=== PATIENT | male | born 1960 | race Caucasian/White ===

== ENCOUNTER 2021-09-08 07:58 | Outpatient (RCR) | payer SELFPAY | END 2022-08-25 08:39 | disposition home or self-care (01) | PROVIDERS: PCP Family Medicine | DX: M48.062 Spinal stenosis, lumbar region with neurogenic claudication (principal); M47.26 Other spondylosis with radiculopathy, lumbar region; M62.830 Muscle spasm of back; M79.605 Pain in left leg; Z51.89 Encounter for other specified aftercare ==

== ENCOUNTER 2021-10-02 15:10 | Outpatient (CLI) | payer SELFPAY ==
[2021-10-02 17:20] LABS: Chloride* 104 mmol/L (96-114); Potassium* 4.5 mmol/L (3.6-5.1); Sodium* 138 mmol/L (135-149)
[2021-10-02 17:22] LABS: Creatinine* 0.8 mg/dL (0.5-1.5); Estimated Glomerular Filt Rate 101 ml/min
[2021-10-02 17:23] LABS: Blood Urea Nitrogen* 22 mg/dL (7-30); Calcium* 9.3 mg/dL (8.4-10.6); Carbon Dioxide* 27 mmol/L (20-32); Glucose* 86 mg/dL (60-115)
== END 2021-10-02 15:11 | disposition home or self-care (01) ==
LOC: LONREF 15:12
PROVIDERS: PCP Family Medicine; Visit Provider Family Medicine
DX: Z01.818 Encounter for other preprocedural examination (principal)
CPT/HCPCS: 80048

== ENCOUNTER 2021-10-05 09:15 | Outpatient (CLI) | payer SELFPAY | END 2021-10-05 09:16 | disposition home or self-care (01) | LOC: LAB 09:15 | PROVIDERS: PCP Family Medicine; Visit Provider Orthopaedic Surgery Sports Medicine | DX: Z01.818 Encounter for other preprocedural examination (principal) | CPT/HCPCS: 36415; 86850; 86900; 86901 ==

== ENCOUNTER 2021-10-06 08:03 | Outpatient (CLI) | payer SELFPAY ==
[2021-10-06 16:09] LABS: SARS PCR* Negative SARS-CoV-2 (Negative)
== END 2021-10-06 08:04 | disposition home or self-care (01) ==
LOC: LONREF 08:25
PROVIDERS: PCP Family Medicine; Visit Provider Orthopaedic Surgery Sports Medicine
DX: Z20.822 Contact with and (suspected) exposure to COVID-19 (principal)
CPT/HCPCS: 87635

== ENCOUNTER 2021-10-07 08:52 | Day surgery (SDC) | payer SELFPAY ==
[2021-10-07] VITALS (31 sets, daily range): BP systolic 77–157; BP diastolic 51–96; PULSE 54–84; RESP 10–18; TEMP 35.9–36.9; O2SAT 92–100; BMI 26.9
[2021-10-07] MEDS: CELECOXIB 200 MG CAPSULE PO ×2 (08:57→20:45)
[2021-10-07] MEDS: LACTATED RINGERS 1000 ML 1,000 ML 100 ML IV ×2 (09:50→12:19)
[2021-10-07] MEDS: SODIUM CHLORIDE 0.9 % (FLUSH) 10 ML SYRINGE IVF (09:50)
--- NOTE | 2021-10-07 10:04 | CRLHL7_ITS ---
For Patients: As a result of the Cures Act, medical imaging exams and procedure reports are released immediately into your electronic medical record. You may view this report before your referring provider. If you have questions, please contact your health care provider. Indication: post op left AP hip Technique: AP hip centered pelvis and lateral view left hip Findings/Impression: Hardware from a left total hip arthroplasty is in satisfactory position. Bone alignment is normal. No sign of acute fracture. Postop changes are within normal limits. Dictated by Mg Parrish MD @ 10/08/2021 9:32:10 AM (Electronically Signed)
--- NOTE | 2021-10-07 10:19 | CRLHL7_ITS ---
For Patients: As a result of the Cures Act, medical imaging exams and procedure reports are released immediately into your electronic medical record. You may view this report before your referring provider. If you have questions, please contact your health care provider. Indication: Hip replacement surgery Technique: AP hip fluoroscopic image. Fluoroscopy time 45.0 seconds. Findings/Impression: Hardware from a left total hip arthroplasty is in satisfactory position. Dictated by Mg Parrish MD @ 10/07/2021 1:38:01 PM (Electronically Signed)
[2021-10-07] MEDS: fentaNYL 100 MCG/2 ML inj IVP (10:59)
[2021-10-07] MEDS: MIDAZOLAM HCL 1 MG/ML inj IVP (10:59)
--- NOTE | 2021-10-07 11:12 | SUR.PREOP ---
TIME?OUT:?1058 PT/RN/MDA?VERIFICATION?OF?SURGICAL?SITE,?PROCEDURE,?AND?CONSENT OBTAINED?PRIOR?TO?INVASIVE?PROCEDURE.
--- NOTE | 2021-10-07 11:15 | SUR.PREOP ---
TIME?OUT:?1058 PT/RN/MDA?VERIFICATION?OF?SURGICAL?SITE,?PROCEDURE,?AND?CONSENT OBTAINED?PRIOR?TO?INVASIVE?PROCEDURE.
--- NOTE | 2021-10-07 11:23 | P.NB_ITS ---
Nerve Block Nerve Block Time Seen by Provider: 11:00 Date Seen: 10/07/21 Type of block requested by surgeon for post-operative analgesia: MP/LFCN Side: left Time out performed: Yes Verification of patient name: Yes Verification of date of : Yes Site marking: site marked Name of person performing procedure: Tawanda Continuous monitoring Was continuous monitoring of O2 sat, B/P, technical account executive, recorded every 15 minutes?: Yes Procedure Checklist: sterile prep, needles and gloves Ultrasound guided. Images saved: Yes Medications given in 5ml increments after negative aspiration: Ropivicaine %: 0.5 mL: 20 Needle gauge: 20 Decadron (mg): 10 Precedex (mcg): 25 Patient tolerated procedure well: Yes Additional comments: Needle noted adjacent to nerve Block Charges Block Charge (with Pro Fee): Other Periph Nerve Block Use of Ultrasound Machine for Block: Yes- US Guidance/pain block
[2021-10-07] MEDS: CEFAZOLIN 2 GM INJ IVP (11:27)
--- NOTE | 2021-10-07 13:12 | P.ORPRC_ITS ---
Procedure Note Date of procedure: 10/07/21 Procedure: PREOPERATIVE DIAGNOSIS: 1. Left hip osteoarthritis, severe, primary POSTOPERATIVE DIAGNOSIS: 1. Left hip osteoarthritis, severe, primary PROCEDURE: 1. Left total hip arthroplasty-anterior approach 2. 34651 - intraoperative fluoroscopy up to 1 hour. SURGEON: Rafael Christie MD. TURKEY ROLL MAKER: Denis Bai PA-C; Wilfredo GARRISON - Of note, a skilled printing bindery assistant was critical for this case to aid in patient positioning, tissue retraction, limb manipulation/positioning, dislocation/relocation, patient safety, and closure. ANESTHESIA: Spinal anesthetic EBL: 800 mL IMPLANTS: DePuy J&J uncemented total hip Butler cup size 52, hole eliminator, +0 neutral liner Actis stem, high offset, size 8 +1 mm ceramic 32mm head. COMPLICATIONS: None evident INDICATIONS: The patient is a pleasant 61-year-old male who has experienced severe left hip pain and difficulty bearing weight. Workup included x-rays which revealed severe osteoarthrosis in the hip. Given the deformity, the dysfunction, and the pain, as well as the failure of nonoperative management, recommendation was made for surgery. FINDINGS: Moderate effusion upon entering the joint. Full-thickness cartilage loss superior acetabulum and significant wear superior femoral head. Osteophytes around the femoral head/neck junction and perimeter of acetabulum. DESCRIPTION OF PROCEDURE: Following a thorough discussion of risks, benefits, and alternatives consent was obtained and the left hip was marked. The patient was brought to the operating room and placed supine on the operating table. Induction of anesthesia was undertaken. 2 g IV Ancef and 1 g tranexamic acid was administered within 1 hr of incision preoperatively. Proper time-out was performed identifying proper patient, site, procedure. The operative extremity was prepped and draped in the appropriate sterile fashion using ChloraPrep after the patient was positioned on the Todd table with head in neutral alignment and all bony prominences well padded. C-arm fluoroscopic imaging was utilized to confirm proper pelvis rotation and position, and to get true AP films of both the contralateral left, and the affected left hip. This is for comparison. A longitudinal incision was made starting approximately 1 cm distal to the ASIS, and 3-4 cm lateral. The incision was extended distally aiming toward the lateral border the patella. Sharp incision through skin and bovie cautery through the subcutaneous tissue allowed identification of the TFL fascia. This was sharply divided, and the fascia bluntly released from the muscle fibers as we dissected medial. Upon coming to the medial border, we were able to retract the TFL laterally, and penetrated the deeper fascia and identify the crossing circumflex vessels. These were ligated/cauterized. The rectus was elevated from the capsule, and retractors placed laterally and medially along the femoral neck to help with visualization of the capsule. We then performed an inverted T capsulotomy. The capsule was tagged for later repair. Retractors were placed inside the capsule. The femoral neck was visualized after releasing medially down to the lesser trochanter, along the saddle laterally, and up onto the acetabulum. The femoral neck cut was made in line with our preoperative templating. The head was removed in a single piece, and sized. We turned our attention to acetabular preparation. Initially, the labrum was resected from around the perimeter, the pulvinar was excised, allowing us to visualize the false wall. We started the reaming with a 43 mm reamer. This was medialized down to the true wall. We then enlarged our reamers sequentially up to one size less than the selected cup size. We trialed at the same size and found it to have an excellent fit. The selected cup was then opened, inserted, and impacted in line with the goal of 40-45? of abduction, and 20-25? of anteversion. This was confirmed on C-arm fluoroscopic imaging to be in the appropriate/goal position. Once the cup was placed we placed a hole eliminator and a liner consistent with preop planning. Attention was turned to the femoral preparation. The limb was extended, externally rotated, and adducted. The posteromedial capsule was released, as retractors were placed allowing excellent access to the proximal femur. Initially a switch box installer was followed by canal finder followed by various broaches. We broached sequentially up to size noted above, found it to have excellent rotational control, and trialing various heads and necks, revealed that appropriate neck offset, and the above noted head size provided the greatest stability, and bahai of length, and offset. C-arm fluoroscopic imaging confirmed position of the stem, as well as leg lengths, which were compared with the pre procedure all fluoroscopic images. Trial implants were removed, the real femoral stem inserted, as was the ceramic head. After reducing, the leg was placed through range of motion and stability was confirmed anterior, posterior, and lateral. A 3 min Betadine soak was then performed, and thorough irrigation with normal saline followed. Closure of the capsule was performed with #1 PDS. Bleeding was confirmed to be controlled at this stage, and the TFL fascia was closed with #0 strata fix. Subcutaneous, and subcuticular closure was performed with 2-0 Vicryl and 4-0 Monocryl, respectively. Dressings were applied, and the patient was awoken from anesthesia and transferred the PACU in stable condition. A skilled printing bindery assistant was critical for this case to aid in patient positioning, tissue retraction, proximal femur exposure, limb manipulation/positioning, dislocation/relocation, patient safety, and closure. PLAN: 1. Weight bear as tolerated operative extremity. 2. 23 hr perioperative antibiotics. 3. Ice. 4. PT/OT consults for ambulation assistance/mobility education. 5. Social work consult for discharge planning. 6. DVT prophylaxis with at SCDs, Benedicto Nye, and Xarelto x5 days followed by a spirin for a total of 1 month..
--- NOTE | 2021-10-07 13:51 | W.ANESCHARGE ---
Anesthesia Charges Start Date/Time Anesthesia Start Date: 10/07/21 Anesthesia Start Time: 11:14 Stop Date/Time Anesthesia Stop Date: 10/07/21 Anesthesia Stop Time: 13:47 Summary Emergency: No
[2021-10-07] MEDS: fentaNYL 100 MCG/2 ML inj 50 MCG IVP (14:15)
--- NOTE | 2021-10-07 15:33 | PC.NURSE ---
End of Shift: Patient arrived to the floor awake and alert in bed at 1447, patient very pleasant and cooperative. Patient vitally stable, upon arrival, lung clear, BS WNL, LR running 75ml. Patient can move right toes but not yet left foot toes. Patient denies pain. Patient tolerating ice, chips, water, apple sauce, and pudding. Left hip dressing C/D/I.
--- NOTE | 2021-10-07 15:34 | PM.IMCN1 ---
Date of Consult Consult date: 10/07/21 Requesting Physician: Orthopedics Primary Care Provider: Tanvir Monroe MD Consult Narrative Reason for consult: Medical management of comorbidities Narrative: Jabari Coates is a 61 year old male presented to the hospital today for elective left hip replacement with Dr. Harper. There were no operative or anesthetic complications. Patient is feeling well when I see him postoperatively. His blood pressure is on the low side, this is baseline for him and he is asymptomatic. Hospitalist team was consulted given patient's comorbidities which include anxiety, insomnia, and family history of cardiac disease. Preoperative H&P and labs reviewed (Dr. Monroe is PCP locally); no concerns noted. Patient is generally healthy, takes Sertraline daily for anxiety and melatonin prn at HS. Nonsmoker, no alcohol use. Lives with his in [place], works at [employer] in [place]. Two adult sons live in [place], [place]. Review of Systems Status of ROS: Reports: 10 or more systems reviewed and unremarkable except as noted in History and below [facility] Medical History (Updated 10/05/21 @ 13:06 by Sukumar Butterfield RN) Anxiety Neuropathy of left lower extremity Osteoarthritis of left hip Surgical History (Updated 10/07/21 @ 15:45 by Rossi Christian MD) H/O umbilical hernia repair H/O vasectomy (~1999) History of ankle surgery S/P hernia surgery (~2001) Family History Mother Breast cancer Brother Heart problem Heart attack Social History Smoking Status: Former smoker Do you use any of these nicotine containing products: None Second hand tobacco smoke exposure: No How often do you have a drink containing alcohol: never AUDIT-C Alcohol total score: 0 Non-prescribed substance use: denies use Caffeine: Yes (coffee, 5-6 cups/day) Meds Home Medications and Allergies Home Medications Medication Instructions Recorded Confirmed Type melatonin 5 mg capsule 10 mg PO .Bedtime as needed PRN 09/17/21 10/07/21 History sertraline 50 mg tablet 50 mg PO DAILY 09/17/21 10/07/21 History Allergies Allergy/AdvReac Type Severity Reaction Status Date / Time acetaminophen [From Percocet] Allergy Intermediate Rash Verified 10/07/21 09:16 oxycodone [From Percocet] Allergy Intermediate Rash Verified 10/07/21 09:16 Exam Narrative: Exam Narrative: GEN: Alert and oriented, sitting comfortably in bed and answering questions appropriately HEENT: Normal external ears, EOMIs bilaterally, no scleral icterus CV: RRR, No concerning murmurs, rubs, or gallops R: LCTA bilaterally without concerning wheezing, rales, or rhonchi Ext: wwp, no concerning edema, wearing Benedicto hose Neuro: Nonfocal, no resting tremor, gait not observed Psych: Appropriate Const: Vital Signs, click to edit/add: Vital Signs - 24 hr 10/07/21 09:22 10/07/21 11:00 10/07/21 11:05 Temperature 97.1 F L Pulse Rate 61 71 71 Pulse Rate [Left P ulse Oximeter] Respiratory Rate 16 16 16 Blood Pressure 153/89 H 157/96 H 142/89 H Blood Pressure [Ri ght Arm] Pulse Oximetry 100 98 93 Oxygen Delivery Me thod Room Air Nasal Cannula Nasal Cannula Oxygen Flow Rate 2 2 10/07/21 11:11 10/07/21 13:46 10/07/21 13:50 Temperature 97.2 F L Pulse Rate 76 68 69 Pulse Rate [Left P ulse Oximeter] Respiratory Rate 16 16 12 Blood Pressure 135/87 102/62 107/68 Blood Pressure [Ri ght Arm] Pulse Oximetry 98 98 99 Oxygen Delivery Me thod Nasal Cannula Room Air Room Air Oxygen Flow Rate 2 10/07/21 13:55 10/07/21 14:00 10/07/21 14:05 Temperature Pulse Rate 65 71 69 Pulse Rate [Left P ulse Oximeter] Respiratory Rate 10 L 14 12 Blood Pressure 107/73 109/74 102/81 Blood Pressure [Ri ght Arm] Pulse Oximetry 95 96 98 Oxygen Delivery Me thod Room Air Room Air Room Air Oxygen Flow Rate 10/07/21 14:10 10/07/21 14:15 10/07/21 14:20 Temperature 97.1 F L Pulse Rate 63 57 L 57 L Pulse Rate [Left P ulse Oximeter] Respiratory Rate 12 15 16 Blood Pressure 112/76 121/70 115/70 Blood Pressure [Ri ght Arm] Pulse Oximetry 95 96 100 Oxygen Delivery Me thod Room Air Room Air Room Air Oxygen Flow Rate 10/07/21 14:25 10/07/21 14:47 10/07/21 15:00 Temperature 96.8 F L 96.6 F L Pulse Rate 58 L 61 Pulse Rate [Left P ulse Oximeter] 56 L Respiratory Rate 12 12 12 Blood Pressure 116/69 Blood Pressure [Ri ght Arm] 120/83 123/82 Pulse Oximetry 100 99 Oxygen Delivery Me thod Room Air Room Air Room Air Oxygen Flow Rate 0 10/07/21 14:30 10/07/21 14:35 Temperature Pulse Rate 54 L 58 L Pulse Rate [Left P ulse Oximeter] Respiratory Rate 14 16 Blood Pressure 115/72 77/51 L Blood Pressure [Ri ght Arm] Pulse Oximetry 92 98 Oxygen Delivery Me thod Room Air Room Air Oxygen Flow Rate Assessment and Plan Assessment and plan (1) Hip joint replacement status: Status: Acute Plan 61-year-old male with left hip replacement: Pain Management and prophylaxis per orthopedic surgery team. Continue home medications. Continue to follow blood pressure. Anticipate routine postoperative cares and discharge home tomorrow.
[2021-10-07] MEDS: LACTATED RINGERS 1000 ML 1,000 ML 75 ML IV (16:59)
[2021-10-07] MEDS: HYDROmorphone 2 MG TABLET PO ×2 (17:00→22:45)
[2021-10-07] MEDS: CEFAZOLIN 2 GM in 0.9 % SODIUM CHLORIDE Mini-bag 100 ML IVPB (17:30)
[2021-10-07] MEDS: ACETAMINOPHEN 500 MG TABLET 1000 MG PO ×2 (17:30→23:56)
[2021-10-07] MEDS: hydrOXYzine pamoate 25 MG CAPSULE PO ×2 (17:33→22:45)
[2021-10-07] MEDS: 0.9 % SODIUM CHLORIDE 500 ML IV (19:50)
[2021-10-07] MEDS: SENNOSIDES 1 TAB TABLET 2 TAB PO (20:45)
--- NOTE | 2021-10-07 23:51 | PC.NURSE ---
End of Shift: Patient pleasant and cooperative. Afebrile. Rating pain in left hip up to 5/10. PRN Dilaudid and Vistaril given x2. Dressing to left hip C/D/I. CMS intact. Tolerating regular diet with no nausea. Patient became lightheaded, dizzy and diaphoretic on first attempt to get out of bed when sitting on the side of the bed. Patient laid back down and BP 82/53, heart rate 64. Updated MD and 500 cc bolus given. Next BP 92/54 and 100/66. Patient able to ambulate to bathroom after a few hours with 2 assist, walker and gait belt and denied any further lightheadedness or dizziness. Patient unable to void after being up to the bathroom and several attempts with the urinal in bed. Bladder scanned for 630 mL and straight cath x1.
[2021-10-08] MEDS: CEFAZOLIN 2 GM in 0.9 % SODIUM CHLORIDE Mini-bag 100 ML IVPB ×2 (01:19→10:11)
[2021-10-08 03:00] VITALS: BP 101/58; PULSE 65; RESP 18; TEMP 36.6; O2SAT 97
[2021-10-08] MEDS: hydrOXYzine pamoate 25 MG CAPSULE PO (05:14)
[2021-10-08] MEDS: HYDROmorphone 2 MG TABLET PO ×3 (05:14→12:15)
[2021-10-08] MEDS: LACTATED RINGERS 1000 ML 1,000 ML 75 ML IV (05:20)
--- NOTE | 2021-10-08 05:42 | PC.NURSE ---
[id number]: patient assist X1 with walker and gait belt, pain minimal see EMAR for meds given. ice to surgical site. incison c/d/i. tolerating diet.
--- NOTE | 2021-10-08 06:48 | W.ANESCHARGE ---
Anesthesia Charges Start Date/Time Anesthesia Start Date: 10/07/21 Anesthesia Start Time: 11:14 Stop Date/Time Anesthesia Stop Date: 10/07/21 Anesthesia Stop Time: 13:47 Summary Emergency: No
[2021-10-08 07:00] VITALS: BP 111/68; PULSE 75; RESP 18; TEMP 37.1; O2SAT 100
[2021-10-08 07:06] LABS: Basophils Percent Auto 0.1 % (0.0-3.0); Hematocrit 31.9 % (37.0-53.0); Hemoglobin* 10.7 gm/dL (13.5-17.5); Immature Granulocytes Abs Auto 0.02 K/uL (0.00-0.30); Mean Corpuscular HGB Conc 34 gm/dL (32-36); Mean Corpuscular Hemoglobin 31 pg (26-34); Mean Corpuscular Volume 92 fL (80-100); Monocytes Percent Auto 8.1 % (0.0-11.0); Neutrophils Percent Auto 81.6 % (42.0-72.0); Platelet Count* 195 K/uL (140-440); RDW Coefficient of Variation % 12.8 % (11.5-15.5); Red Blood Count 3.47 m/uL (4.30-5.90)
[2021-10-08 07:22] LABS: Slide Review Reflex No
[2021-10-08 07:33] LABS: Potassium* 4.4 mmol/L (3.6-5.1); Sodium* 136 mmol/L (135-149)
[2021-10-08 07:36] LABS: Blood Urea Nitrogen* 20 mg/dL (7-30); Creatinine* 0.6 mg/dL (0.5-1.5); Est. Creatinine Clearance* 79.08; Estimated Glomerular Filt Rate 109 ml/min
[2021-10-08] MEDS: RIVAROXABAN 10 MG TABLET PO (08:59)
[2021-10-08] MEDS: SENNOSIDES 1 TAB TABLET 2 TAB PO (08:59)
[2021-10-08] MEDS: SERTRALINE 50 MG TABLET PO (08:59)
[2021-10-08] MEDS: CELECOXIB 200 MG CAPSULE PO (09:03)
[2021-10-08] MEDS: ACETAMINOPHEN 500 MG TABLET 1000 MG PO (12:14)
--- NOTE | 2021-10-08 13:06 | PC.NURSE ---
shift note: drsg to lt hip c/d/i. pt has intact cms and cap refill. Pt instructed on dc orders and questions addressed. pt sent with 2 ice paks, 1 set of extra abi socks. Pt bp stable and wnl. IV dc'd intact. Pt sent with IS. Pt instructed on s/s of dvt. Belongings reviewed with pt and sent at dc to home.
--- NOTE | 2021-10-08 13:27 | P.DS_ITS ---
DS: Providers Provider Time Seen by Provider: 10:00 Date Seen: 10/09/21 Date of admission: 10/08/2021 Primary care physician: Tanvir Monroe MD Admitting Clinician: Rafael Christie MD Consults: 10/07/21 14:22 Consult to Occupational Therapy [CONS] Routine Comment: Reason(s) for OT Consult:: ADLs Prior to Discharge Any Restrictions?:: No Restrictions Comment: Consult to Physical Therapy [CONS] Routine Comment: Ambulate in the silveira today Reason(s) for PT Consult:: Evaluate and Treat Any Restrictions?:: No Restrictions Comment: Nursing Activity Consult to Physician [CONS] Routine Comment: Consulting Provider: Hospitalists Has provider been notified: No Consult to Bee Producer [CONS] Routine Comment: Reason for Consult:: Discharge Planning Needs Attending Physician on discharge: Rafael Christie MD Date of Discharge: 10/08/21 DS: Diagnosis Discharge Diagnosis (1) Hip joint replacement status: Status: Acute (2) Postoperative anemia due to acute blood loss: Status: Acute (3) Neuropathy of left lower extremity: Status: Acute (4) Osteoarthritis of left hip: Status: Acute (5) Lumbar spine pain: Status: Acute Problem details: 2. Moderate degenerative central stenosis at L2-3 and mild central stenosis at other levels 2b. Multilevel hypertrophic facet degeneration and multilevel degenerative foraminal stenosis, especially bilaterally at L5-S1 and right L3-4 2c. Modic 1 endplate marrow changes posteriorly at L1-2 (6) Anxiety: Status: Acute DS: Summary Hospital Course Hospital Course: Jabari Coates is a 61 year old male presented to the hospital today for elective left hip replacement with Dr. Harper. There were no operative or anesthetic complications.? Patient is feeling well when I see him postoperatively. His blood pressure is on the low side, this is baseline for him and he is asymptomatic. Hospitalist team was consulted given patient's comorbidities which include anxiety, insomnia, and family history of cardiac disease. Preoperative H&P and labs reviewed (Dr. Monroe is PCP locally); no concerns noted. Patient is generally healthy, takes Sertraline daily for anxiety and melatonin prn at HS. Nonsmoker, no alcohol use.? Lives with his in [place], works at [employer] in [place]. Patient did well postoperatively. Did well physical and occupational therapy. We did find mild postoperative anemia. Status at Discharge Functional status at discharge: uses cane/walker Overall status at discharge: patient is progressing back to baseline Time Spent with Patient Time attestation: Total time spent providing and/or coordinating discharge services: Time spent: Less than 30 minutes Exam Narrative: Exam Narrative: Alert, oriented to self, place, time, situation. Friendly. Cooperative. Mood and affect are congruent. Lungs are clear to auscultation. He has a regular heart rhythm, normal S1-S2 without murmur gallop or rub. Abdomen is benign. Extremities all edema. Ambulates independently with walker. Const: Vital Signs, click to edit/add: Vital Signs - 24 hr 10/07/21 13:46 10/07/21 13:50 10/07/21 13:55 Temperature 97.2 F L Pulse Rate 68 69 65 Pulse Rate [Left P ulse Oximeter] Respiratory Rate 16 12 10 L Blood Pressure 102/62 107/68 107/73 Blood Pressure [Ri ght Arm] Pulse Oximetry 98 99 95 [facility] Room Air Oxygen Flow Rate 10/07/21 14:00 10/07/21 14:05 10/07/21 14:10 Temperature Pulse Rate 71 69 63 Pulse Rate [Left P ulse Oximeter] Respiratory Rate 14 12 12 Blood Pressure 109/74 102/81 112/76 Blood Pressure [Ri ght Arm] Pulse Oximetry 96 98 95 [facility] Room Air Room Air Oxygen Flow Rate 10/07/21 14:15 10/07/21 14:20 10/07/21 14:25 Temperature 97.1 F L Pulse Rate 57 L 57 L 58 L Pulse Rate [Left P ulse Oximeter] Respiratory Rate 15 16 12 Blood Pressure 121/70 115/70 116/69 Blood Pressure [Ri ght Arm] Pulse Oximetry 96 100 100 Oxygen Delivery [place] thod Room Air Room Air Room Air Oxygen Flow Rate 10/07/21 14:47 10/07/21 15:00 10/07/21 14:30 Temperature 96.8 F L 96.6 F L Pulse Rate 61 54 L Pulse Rate [Left P ulse Oximeter] 56 L Respiratory Rate 12 12 14 Blood Pressure 115/72 Blood Pressure [Ri ght Arm] 120/83 123/82 Pulse Oximetry 99 92 Oxygen Delivery La thod Room Air Room Air Room Air Oxygen Flow Rate 0 10/07/21 14:35 10/07/21 15:15 10/07/21 15:30 Temperature 96.7 F L 97.3 F L Pulse Rate 58 L Pulse Rate [Left P ulse Oximeter] 61 61 Respiratory Rate 16 16 16 Blood Pressure 77/51 L Blood Pressure [Ri ght Arm] 107/75 100/59 L Pulse Oximetry 98 98 98 Oxygen Delivery Me thod Room Air Room Air Room Air Oxygen Flow Rate 0 10/07/21 15:45 10/07/21 16:00 10/07/21 16:30 Temperature Pulse Rate Pulse Rate [Left P ulse Oximeter] 63 65 79 Respiratory Rate 16 16 16 Blood Pressure Blood Pressure [Ri ght Arm] 117/81 118/80 125/87 Pulse Oximetry 99 98 100 Oxygen Delivery Me thod Room Air Room Air Room Air Oxygen Flow Rate 0 10/07/21 17:00 10/07/21 18:00 10/07/21 19:00 Temperature 97.6 F Pulse Rate Pulse Rate [Left P ulse Oximeter] 77 84 83 Respiratory Rate 16 16 18 Blood Pressure Blood Pressure [Ri ght Arm] 118/81 115/81 116/79 Pulse Oximetry 99 97 96 Oxygen Delivery Me thod Room Air Room Air Room Air Oxygen Flow Rate 10/07/21 19:35 10/07/21 19:40 10/07/21 19:45 Temperature 97.6 F Pulse Rate Pulse Rate [Left P ulse Oximeter] 64 65 61 Respiratory Rate 16 16 16 Blood Pressure Blood Pressure [Ri ght Arm] 82/53 L 92/54 L 100/66 Pulse Oximetry 99 97 98 Oxygen Delivery Me thod Room Air Room Air Room Air Oxygen Flow Rate 10/07/21 20:00 10/07/21 21:00 10/07/21 23:57 Temperature 98.4 F 97.6 F Pulse Rate Pulse Rate [Left P ulse Oximeter] 66 76 67 Respiratory Rate 16 16 18 Blood Pressure Blood Pressure [Ri ght Arm] 104/76 125/84 113/61 Pulse Oximetry 95 98 96 Oxygen Delivery Me thod Room Air Room Air Room Air Oxygen Flow Rate 10/08/21 03:00 10/08/21 07:00 Temperature 98 F 98.7 F Pulse Rate Pulse Rate [Left P ulse Oximeter] 65 75 Respiratory Rate 18 18 Blood Pressure Blood Pressure [Ri ght Arm] 101/58 L 111/68 Pulse Oximetry 97 100 Oxygen Delivery Me thod Room Air Room Air Oxygen Flow Rate 0 DS: Data Data Completed and Pending Labs on day of discharge: Labs from last 24 hours 10/08/21 10/08/21 06:27 06:27 WBC 11.70 H RBC 3.47 L Hgb 10.7 L Hct 31.9 L MCV 92 MCH 31 MCHC 34 RDW Coeff of Cecily 12.8 Plt Count 195 Neut % (Auto) 81.6 H Lymph % (Auto) 10.0 L [place] % (Auto) 8.1 Eos % (Auto) 0.0 Baso % (Auto) 0.1 Neut # (Auto) 9.50 H Lymph # (Auto) 1.20 [place] # (Auto) 0.90 Eos # (Auto) 0.00 Baso # (Auto) 0.00 Abs Immat Gran (auto) 0.02 Sodium 136 Potassium 4.4 BUN 20 Creatinine 0.6 Estimated Creat Clear 79.08 Estimated GFR 109 Discharge Plan Discharge Disposition: Home, Self-Care Discharging Surgeon: Rafael Christie Follow-Up Appointment: Orthopedic surgery as planned Prescriptions: New sennosides-docusate sodium [Senna-S] 8.6-50 mg tablet 1 - 4 tab-cap PO BID PRN (Reason: constipation) Qty: 60 0RF Rx Instructions: Hold medication if experiencing loose stools. rivaroxaban 10 mg tablet 10 mg PO DAILY Qty: 4 0RF Rx Instructions: Medication for deep vein clot prevention post surgery. Complete this medication before starting Aspirin. aspirin 81 mg tablet,delayed release (DR/EC) 81 mg PO BID Qty: 50 0RF Rx Instructions: Medication to help prevent blood clots postoperatively; take TWICE daily. Start after completing rivaroxaban. hydromorphone 2 mg tablet 2 - 4 mg PO Q4-6H Qty: 30 0RF Rx Instructions: PRN postop pain: 2mg mild-moderate pain, 4mg severe pain. Wean as tolerated. acetaminophen 500 mg capsule 500 - 1,000 mg PO Q6H MDD 4000mg PRNQty: 100 0RF Continued melatonin 5 mg capsule 10 mg PO .Bedtime as needed PRN sertraline 50 mg tablet 50 mg PO DAILY Activity Level: Activity as Tolerated, Weight Bearing as Tolerated, Use Cane and Use Walker Activity Detail: Wound: ?Do not remove original dressing; we will remove this at first postop visit in 1 week. Only remove dressing if integrity is in question. ?No immersing wound in water; showering okay; light scrub with your hand and body soap, rinse, dab dry ?Sutures are under the skin, will dissolve; allow surgical glue to come off naturally; do not scrub the wound or apply ointments/lotions ?Call our office with any redness that streaks, excessive drainage from the wound, or wound gapping. Ice/Elevate: ?Ice as needed for swelling and discomfort (cryocuff or ice pack); elevate frequently above the heart CHARLES socks: ?Wear for 1 month, remove for 1 hour 3 times per day ?These are frustrating to take on/off, but are important for blood clot prevention for 1 month after surgery Blood Clot Prevention (DVT): ?Medication: Rivaroxaban with transition to aspirin Driving: ?Do not drive while taking narcotic pain medication ?Anticipate 4-6 weeks no driving if operative leg is driving leg Dental: ?No elective dental work for 6 months post-op. If there is an urgent/emergent dental need, contact our office for an antibiotic prescription. Smoking/Alcohol: ?Do not smoke; do no drink alcohol especially when taking postoperative oral narcotic medication Seek Care from you Primary Care Provider if you experience the following issues in the postoperative phase and beyond: ?Bacterial infections such as: pneumonia, bacterial skin infection (cellulitis), UTI, high fever, chills unrelated to the operative body part - call your primary care physician urgently for treatment in hopes to protect your health and the metal implant. Referrals: ?PT, OT per patient preference - evaluate treat total left hip arthroplasty protocol (the training, ROM, ADLs, knee-high Charles socks) Follow up: ?Ortho surgeon follow-up in 6 weeks; repeat radiographs AP pelvis, cross-table lateral left hip ?PA-C visit in 1 week *If there are any acute concerns regarding your surgery, please call our orthopedic clinic ([phone]) Discharge Diet: Regular Patient Instructions: Acetaminophen (By mouth), Aspirin (By mouth), Hydromorphone (By mouth), Rivaroxaban (By mouth), Senna (By mouth), Surgical Site Infections (DC), Anterior Hip Replacement (DC) Forms: Work/Release Restrictions Follow-up: Tanvir Monroe MD [Primary Care Provider] - Denis Bai PA-C [Physician Mixer Operator Vacuum [employer]] - 10/13/21 1:30 pm Discharge Orders: Discharge Order (Routine); Ordered 10/08/21 Ordered By: Denis Bai
--- NOTE | 2021-10-08 15:59 | PM.ORPN ---
Subjective Subjective Time Seen by Provider: 08:00 Date Seen: 10/08/21 Principal diagnosis: Status post left total hip arthroplasty - anterior approach Interval history: Patient reports doing well. Difficulty with starting urine flow, requiring straight catheter yesterday. Since that time, he is able to initiate stream on his own and completely void his bladder. Also having some soft blood pressures postoperative coming having 1 episode of diaphoresis and feel lightheaded while on the edge of the bed. Has not had any repeat of similar symptoms/signs. Pain managed with scheduled /PRN medications and ice. DVT prophylaxis rivaroxaban, bilateral knee high Benedicto stockings, and SCDs.. Denies fevers, chills, aches, N/V, CP, SOB/GILLIS, tachycardia, or lightheadedness. Ortho Exam Narrative Exam Narrative: -Patient appears comfortable in recliner; no apparent acute distress -Alert and oriented times 3 -Operative hip swollen; soft tissues supple; no obvious erythema. Warmth appropriate -Surgical dressing clean, dry, intact; no obvious drainage, no erythematous streaking peripheral to the bandage -Bilateral calves soft and supple; no significant swelling, edema, tenderness, erythema, discoloration, warmth, or palpable cords -2+ DP/PT pulses, intact dermatomes and myotomes distally (5/5 strength). Mild numbness left lateral thigh Const Vital Signs, click to edit/add: Vital Signs - 24 hr 10/07/21 16:00 10/07/21 16:30 10/07/21 17:00 Temperature Pulse Rate [Left Pulse Oximeter] 65 79 77 Respiratory Rate 16 16 16 Blood Pressure [Right Arm] 118/80 125/87 118/81 Pulse Oximetry 98 100 99 Oxygen Delivery Method Room Air Room Air Room Air Oxygen Flow Rate 10/07/21 18:00 10/07/21 19:00 10/07/21 19:35 Temperature 97.6 F 97.6 F Pulse Rate [Left Pulse Oximeter] 84 83 64 Respiratory Rate 16 18 16 Blood Pressure [Right Arm] 115/81 116/79 82/53 L Pulse Oximetry 97 96 99 Oxygen Delivery Method Room Air Room Air Room Air Oxygen Flow Rate 10/07/21 19:40 10/07/21 19:45 10/07/21 20:00 Temperature 98.4 F Pulse Rate [Left Pulse Oximeter] 65 61 66 Respiratory Rate 16 16 16 Blood Pressure [Right Arm] 92/54 L 100/66 104/76 Pulse Oximetry 97 98 95 Oxygen Delivery Method Room Air Room Air Room Air Oxygen Flow Rate 10/07/21 21:00 10/07/21 23:57 10/08/21 03:00 Temperature 97.6 F 98 F Pulse Rate [Left Pulse Oximeter] 76 67 65 Respiratory Rate 16 18 18 Blood Pressure [Right Arm] 125/84 113/61 101/58 L Pulse Oximetry 98 96 97 Oxygen Delivery Method Room Air Room Air Room Air Oxygen Flow Rate 0 10/08/21 07:00 Temperature 98.7 F Pulse Rate [Left Pulse Oximeter] 75 Respiratory Rate 18 Blood Pressure [Right Arm] 111/68 Pulse Oximetry 100 Oxygen Delivery Method Room Air Oxygen Flow Rate Assessment and Plan Assessment and plan (1) Hip joint replacement status: Problem details: POD 1 left total hip arthroplasty - anterior approach Status: Acute (2) Postoperative anemia due to acute blood loss: Problem details: Hgb 10.1 originally symptomatic yesterday on POD 0, now improved with reassuring orthostatic blood pressures Status: Acute (3) Neuropathy of left lower extremity: Status: Acute (4) Osteoarthritis of left hip: Status: Acute (5) Lumbar spine pain: Problem details: 2. Moderate degenerative central stenosis at L2-3 and mild central stenosis at other levels 2b. Multilevel hypertrophic facet degeneration and multilevel degenerative foraminal stenosis, especially bilaterally at L5-S1 and right L3-4 2c. Modic 1 endplate marrow changes posteriorly at L1-2 Status: Acute (6) Anxiety: Status: Acute Plan - Complete 23 hour perioperative antibiotics. - PT/OT consult for education and assistance. - Social work consult for discharge planning - Prescribed analgesics as needed - DVT prophylaxis: Rivaroxaban, bilateral knee high Benedicto Hose stockings and SCDs - Anticipation is for discharge to home with spouse today 10/08/2021 if the patient remains medically stable, pain is controlled, and they are safe with mobilization.
--- NOTE | 2021-10-08 16:02 | P.DS_ITS ---
DS: Providers Provider Date Seen: 10/08/21 Date of admission: Med surg recovery Primary care physician: Tanvir Monroe MD Consults: 10/07/21 14:22 Consult to Occupational Therapy [CONS] Routine Comment: Reason(s) for OT Consult:: ADLs Prior to Discharge Any Restrictions?:: No Restrictions Comment: Consult to Physical Therapy [CONS] Routine Comment: Ambulate in the silveira today Reason(s) for PT Consult:: Evaluate and Treat Any Restrictions?:: No Restrictions Comment: Nursing Activity Consult to Physician [CONS] Routine Comment: Consulting Provider: Hospitalists Has provider been notified: No Consult to Grade Recorder [CONS] Routine Comment: Reason for Consult:: Discharge Planning Needs Attending Physician on discharge: Rafael Christie MD Date of Discharge: 10/08/21 DS: Diagnosis Discharge Diagnosis (1) Hip joint replacement status: Status: Acute Problem details: POD 1 left total hip arthroplasty - anterior approach (2) Postoperative anemia due to acute blood loss: Status: Acute Problem details: Hgb 10.1 originally symptomatic yesterday on POD 0, now improved with reassuring orthostatic blood pressures DS: Summary Hospital Course Hospital Course: Jabari Coates is a 61 year old male presented to the hospital today for elective left hip replacement with Dr. Harper. There were no operative or anesthetic complications.? Patient is feeling well when I see him postoperatively. His blood pressure is on the low side, this is baseline for him and he is asymptomatic. Hospitalist team was consulted given patient's comorbidities which include anxiety, insomnia, and family history of cardiac disease. Preoperative H&P and labs reviewed (Dr. Monroe is PCP locally); no concerns noted. Patient is generally healthy, takes Sertraline daily for anxiety and melatonin prn at HS. Nonsmoker, no alcohol use.? Lives with his in [place], works at [employer] in [place]. Patient did well postoperatively. Did well physical and occupational therapy. We did find mild postoperative anemia. The patient has a history of left hip osteoarthritis. After appropriate preoperative evaluation, the patient underwent left total hip arthroplasty. Postoperatively given anticoagulation for deep vein thrombosis prophylaxis. Postoperative issues included urinary retention resolved after catheterization and now voiding on his own, and acute blood-loss anemia also improved by POD 1 without significant intervention such as PRBC. They progressed to PT/OT and were felt ready and prepared for discharged to home with appropriate pain medication and anticoagulation medications. Status at Discharge Functional status at discharge: uses cane/walker Overall status at discharge: patient is progressing back to baseline Time Spent with Patient Time attestation: Total time spent providing and/or coordinating discharge services: Time spent: Less than 30 minutes Exam Const: Vital Signs, click to edit/add: Vital Signs - 24 hr 10/07/21 16:30 10/07/21 17:00 10/07/21 18:00 Temperature 97.6 F Pulse Rate [Left P ulse Oximeter] 79 77 84 Respiratory Rate 16 16 16 Blood Pressure [Ri ght Arm] 125/87 118/81 115/81 Pulse Oximetry 100 99 97 Oxygen Delivery Me thod Room Air Room Air Room Air Oxygen Flow Rate 10/07/21 19:00 10/07/21 19:35 10/07/21 19:40 Temperature 97.6 F Pulse Rate [Left P ulse Oximeter] 83 64 65 Respiratory Rate 18 16 16 Blood Pressure [Ri ght Arm] 116/79 82/53 L 92/54 L Pulse Oximetry 96 99 97 Oxygen Delivery [place] thod Room Air Room Air Room Air Oxygen Flow Rate 10/07/21 19:45 10/07/21 20:00 10/07/21 21:00 Temperature 98.4 F Pulse Rate [Left P ulse Oximeter] 61 66 76 Respiratory Rate 16 16 16 Blood Pressure [Ri ght Arm] 100/66 104/76 125/84 Pulse Oximetry 98 95 98 Oxygen Delivery Me thod Room Air Room Air Room Air Oxygen Flow Rate 10/07/21 23:57 10/08/21 03:00 08 07:00 Temperature 97.6 F 98 F 98.7 F Pulse Rate [Left P ulse Oximeter] 67 65 75 Respiratory Rate 18 18 18 Blood Pressure [Ri ght Arm] 113/61 101/58 L 111/68 Pulse Oximetry 96 97 100 Oxygen Delivery Me thod Room Air Room Air Room Air Oxygen Flow Rate 0 DS: Data Data Completed and Pending Labs on day of discharge: Labs from last 24 hours 10/08/21 10/08/21 06:27 06:27 WBC 11.70 H RBC 3.47 L Hgb 10.7 L Hct 31.9 L MCV 92 MCH 31 MCHC 34 RDW Coeff of Cecily 12.8 Plt Count 195 Neut % (Auto) 81.6 H Lymph % (Auto) 10.0 L [place] % (Auto) 8.1 Eos % (Auto) 0.0 Baso % (Auto) 0.1 Neut # (Auto) 9.50 H Lymph # (Auto) 1.20 [place] # (Auto) 0.90 Eos # (Auto) 0.00 Baso # (Auto) 0.00 Abs Immat Gran (auto) 0.02 Sodium 136 Potassium 4.4 BUN 20 Creatinine 0.6 Estimated Creat Clear 79.08 Estimated GFR 109 Discharge Plan Discharge Disposition: Home, Self-Care Discharging Surgeon: Rafael Christie Follow-Up Appointment: Orthopedic surgery as planned Prescriptions: New sennosides-docusate sodium [Senna-S] 8.6-50 mg tablet 1 - 4 tab-cap PO BID PRN (Reason: constipation) Qty: 60 0RF Rx Instructions: Hold medication if experiencing loose stools. rivaroxaban 10 mg tablet 10 mg PO DAILY Qty: 4 0RF Rx Instructions: Medication for deep vein clot prevention post surgery. Complete this medication before starting Aspirin. aspirin 81 mg tablet,delayed release (DR/EC) 81 mg PO BID Qty: 50 0RF Rx Instructions: Medication to help prevent blood clots postoperatively; take TWICE daily. Start after completing rivaroxaban. hydromorphone 2 mg tablet 2 - 4 mg PO Q4-6H Qty: 30 0RF Rx Instructions: PRN postop pain: 2mg mild-moderate pain, 4mg severe pain. Wean as tolerated. acetaminophen 500 mg capsule 500 - 1,000 mg PO Q6H MDD 4000mg PRNQty: 100 0RF Continued melatonin 5 mg capsule 10 mg PO .Bedtime as needed PRN sertraline 50 mg tablet 50 mg PO DAILY Activity Level: Activity as Tolerated, Weight Bearing as Tolerated, Use Cane and Use Walker Activity Detail: Wound: ?Do not remove original dressing; we will remove this at first postop visit in 1 week. Only remove dressing if integrity is in question. ?No immersing wound in water; showering okay; light scrub with your hand and body soap, rinse, dab dry ?Sutures are under the skin, will dissolve; allow surgical glue to come off naturally; do not scrub the wound or apply ointments/lotions ?Call our office with any redness that streaks, excessive drainage from the wound, or wound gapping. Ice/Elevate: ?Ice as needed for swelling and discomfort (cryocuff or ice pack); elevate frequently above the heart CHARLES socks: ?Wear for 1 month, remove for 1 hour 3 times per day ?These are frustrating to take on/off, but are important for blood clot prevention for 1 month after surgery Blood Clot Prevention (DVT): ?Medication: Rivaroxaban with transition to aspirin Driving: ?Do not drive while taking narcotic pain medication ?Anticipate 4-6 weeks no driving if operative leg is driving leg Dental: ?No elective dental work for 6 months post-op. If there is an urgent/emergent dental need, contact our office for an antibiotic prescription. Smoking/Alcohol: ?Do not smoke; do no drink alcohol especially when taking postoperative oral narcotic medication Seek Care from you Primary Care Provider if you experience the following issues in the postoperative phase and beyond: ?Bacterial infections such as: pneumonia, bacterial skin infection (cellulitis), UTI, high fever, chills unrelated to the operative body part - call your primary care physician urgently for treatment in hopes to protect your health and the metal implant. Referrals: ?PT, OT per patient preference - evaluate treat total left hip arthroplasty protocol (the training, ROM, ADLs, knee-high Charles socks) Follow up: ?Ortho surgeon follow-up in 6 weeks; repeat radiographs AP pelvis, cross-table lateral left hip ?PA-C visit in 1 week *If there are any acute concerns regarding your surgery, please call our orthopedic clinic ([phone]) Discharge Diet: Regular Patient Instructions: Acetaminophen (By mouth), Aspirin (By mouth), Hydromorphone (By mouth), Rivaroxaban (By mouth), Senna (By mouth), Surgical Site Infections (DC), Anterior Hip Replacement (DC) Forms: Work/Release Restrictions Follow-up: Tanvir Monroe MD [Primary Care Provider] - Denis Bai PA-C [Physician Teacher Of The Visually Impaired] - 10/13/21 1:30 pm Discharge Orders: Discharge Order (Routine); Ordered 10/08/21 Ordered By: Denis Bai
== END 2021-10-08 12:15 | disposition home or self-care (01) ==
LOC: OR 08:55 → MEDSURG 15:55
PROVIDERS: PCP Family Medicine; Visit Provider Orthopaedic Surgery Sports Medicine
PROC: (CPT 27130; principal; 2021-10-07 10:30)
DX: M16.12 Unilateral primary osteoarthritis, left hip (principal); F41.9 Anxiety disorder, unspecified; G62.9 Polyneuropathy, unspecified; M48.07 Spinal stenosis, lumbosacral region; G47.00 Insomnia, unspecified; D62 Acute posthemorrhagic anemia
CPT/HCPCS: 27130; 01214; 36415; 51702; 51798; 64450; 73501; 73502; 76000; 76942; 82565; 84132; 84295; 84520; 85025; 97110; 97116; 97161; 97165; 97530; A9270; C1776; J0690; J1100; J2250; J2370; J2405; J2704; J2795; J3010; J7120

== ENCOUNTER 2021-12-01 08:00 | Outpatient (RCR) | payer SELFPAY | END 2022-01-18 11:22 | disposition home or self-care (01) | PROVIDERS: PCP Family Medicine; Visit Provider Orthopaedic Surgery Sports Medicine | DX: M54.50 Low back pain, unspecified (principal); Z51.89 Encounter for other specified aftercare | CPT/HCPCS: 97032; 97035; 97110; 97116; 97140; 97161 ==